=== PATIENT | female | born 2005 | race Caucasian/White ===

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

== ENCOUNTER 2024-06-07 23:58 | Inpatient (IN) | payer MEDICAID, OTHER ==
--- NOTE | 2024-06-08 01:15 | ED ---
Psych HPI - General Source: patient, RN notes reviewed Mode of arrival: EMS Limitations: no limitations - History of Present Illness MD Complaint: suicidal ideation <Veronica Salazar - Last Filed: 06/08/24 03:48> <Sandro Estes - Last Filed: 06/08/24 11:44> - General Chief Complaint: Psychiatric Symptoms Stated Complaint: Mental Health Time Seen by Provider: 06/08/24 00:08 - History of Present Illness Initial Comments: This is a 19-year-old female who presents to the emergency department for psychiatric evaluation. Patient reports dealing with suicidal ideations on and off for the last couple of years. States that over the last few days it has been much more severe. She ended up calling EMS today because she had a plan to slit her own throat. She does have a history of suicidal ideations and attempts by cutting herself. Denies any history of psychiatric hospitalizations. Not currently taking any psychiatric medications. States that she is at a point where she feels like she wants to sign herself in to the psychiatric unit to get herself care. Denies any homicidal ideations or auditory/visual hallucinations. She does report having several alcoholic beverages tonight. (Veronica Salazar) - Related Data Allergies Allergy/AdvReac Type Severity Reaction Status Date / Time honey Allergy Anaphylaxis Verified 06/08/24 10:47 Review of Systems ROS Other: All systems not noted in ROS Statement are negative. <Veronica Salazar - Last Filed: 06/08/24 03:48> ROS Other: All systems not noted in ROS Statement are negative. <Sandro Estes - Last Filed: 06/08/24 11:44> ROS Statement: Those systems with pertinent positive or pertinent negative responses have been documented in the HPI. Past Medical History Past Medical History: No Reported History History of Any Multi-Drug Resistant Organisms: None Reported Past Surgical History: No Surgical Hx Reported Smoking Status: Vaper Past Alcohol Use History: Daily Past Drug Use History: Marijuana <Veronica Salazar - Last Filed: 06/08/24 03:48> General Exam Limitations: no limitations General appearance: alert, in no apparent distress Head exam: Present: atraumatic, normocephalic, normal inspection Respiratory exam: Present: normal lung sounds bilaterally. Absent: respiratory distress, wheezes, rales, rhonchi, stridor Cardiovascular Exam: Present: regular rate, normal rhythm, normal heart sounds. Absent: systolic murmur, diastolic murmur, rubs, gallop, clicks Neurological exam: Present: alert, oriented X3, CN II-XII intact Psychiatric exam: Present: flat affect, suicidal ideation. Absent: homicidal ideation Skin exam: Present: warm, dry, intact, normal color. Absent: rash <Veronica Salazar - Last Filed: 06/08/24 03:48> Course Vital Signs 06/08/24 00:00 Temperature 98.8 F Pulse Rate 89 Respiratory 18 Rate Blood Pressure 111/76 O2 Sat by Pulse 98 Oximetry Medical Decision Making <Veronica Salazar - Last Filed: 06/08/24 03:48> <Sandro Estes - Last Filed: 06/08/24 11:44> - Medical Decision Making This is a 19-year-old female who presents to the emergency department for psychiatric evaluation. Was pt. sent in by a medical professional or institution? @ -No Did you speak to anyone other than the patient for history? @ -No Did you review nursing and triage notes? @ -Yes, and I agree, it is accurate with regards to the patient's symptoms. Were old charts reviewed? @ -No Differential Diagnosis? @ -Differential Mental Health: Depression, anxiety, bipolar, psychosis, schizophrenia, borderline personality, situational depression, adjustment disorder, behavioral disorder, brain tumor, malingering, substance abuse, encephalopathy, medication reaction, dementia, hypothyroidism, degenerative neurologic disorder, lupus.... This is not meant to be all-inclusive list EKG interpreted by me (3pts min.)? @ -Not obtained X-rays interpreted by me (1pt min.)? @ -Not obtained CT interpreted by me (1pt min.)? @ -Not obtained U/S interpreted by me (1pt. min.)? @ -Not obtained What testing was considered but not performed? (CT, X-rays, U/S, labs)? Why? @ -None What meds were considered but not given? Why? @ -None Did you discuss the management of the patient with other professionals? @ -No Did you reconcile home meds? @ -No Was smoking cessation discussed for >3mins.? @ -No Was critical care preformed (if so, how long)? @ -No Were there social determinants of health that impacted care today? How? (Homelessness, low income, unemployed, alcoholism, drug addiction, transportation, low edu. Level, literacy, decrease access to med. care, long term, rehab)? @ -No Was there de-escalation of care discussed even if they declined? (Discuss DNR or withdrawal of care, Hospice)? @ -No What co-morbidities impacted this encounter? (DM, HTN, Smoking, COPD, CAD, Cancer, CVA, Hep., AIDS, mental health diagnosis, sleep apnea, morbid obesity)? @ -Mental health diagnosis, alcohol use Was patient admitted / discharged? @ -Patient's BAT was 0.264 indicating she will be clear for EPS evaluation after 10 hours, at 10am. Case signed out to ED attending pending EPS evaluation. Undiagnosed new problem with uncertain prognosis? @ -None Drug Therapy requiring intensive monitoring for toxicity (Heparin, Nitro, Insul in, Cardizem)? @ -None (Veronica Salazar) Patient seen by mental health nurse. Case was discussed with mental health nurse with plans for admission to psychiatric floor. Diagnosis: Depression, suicidal ideation Acute, acute Threat to life (Sandro Estes) - Lab Data Lab Results 06/08/24 06/08/24 Range/Units 11:27 11:27 Urine Color Light Yellow Urine Appearance Clear (Clear) Urine pH 5.5 (5.0-8.0) Ur Specific [place] 1.020 (1.001-1.035) Urine Protein Negative (Negative) Urine Glucose (UA) Negative (Negative) Urine Ketones Negative (Negative) Urine Blood Negative (Negative) Urine Nitrite Negative (Negative) Urine Bilirubin Negative (Negative) Urine Urobilinogen <2.0 (<2.0) mg/dL Ur Leukocyte Esterase Negative (Negative) Urine HCG, Qual Not Detected (Not Detectd) Disposition <Veronica Salazar - Last Filed: 06/08/24 03:48> Is patient prescribed a controlled substance at d/c from ED?: No Time of Disposition: 11:44 <Sandro Estes - Last Filed: 06/08/24 11:44> Clinical Impression: Depression, Suicidal ideation Disposition: TRANSFER TO PSYCH HOSP/UNIT Referrals: None,Stated [Primary Care Provider] - 1-2 days
[2024-06-08] MEDS: NICOTINE 14MG/24HR PATCH TRANSDERM STA (06:07)
[2024-06-08 11:33] LABS: Appearance,Urine Clear (Clear); Bilirubin,Urine Negative (Negative); Blood,Urine Negative (Negative); Color,Urine Light Yellow; Glucose,Urine (UA) Negative (Negative); Ketones,Urine Negative (Negative); Leukocyte Esterase,Urine Negative (Negative); Nitrite,Urine Negative (Negative); PH, Urine 5.5 (5.0-8.0); Protein,Urine Negative (Negative); Urobilinogen,Urine <2.0 mg/dL (<2.0)
[2024-06-08 11:44] LABS: Amphetamine Screen,Urine Not Detected (NotDetected); Barbiturate Screen,Urine Not Detected (NotDetected); Benzodiazepines Screen,Urine Not Detected (NotDetected); Cocaine Screen,Urine Not Detected (NotDetected); Methadone Screen, Urine Not Detected (NotDetected); Opiate Screen,Urine Not Detected (NotDetected); Oxycodone Screen, Urine Not Detected (NotDetected); Phencyclidine Screen,Urine Not Detected (NotDetected); Tricyclic Antidepressant,Urine Not Detected (NotDetected); Urn Cannabinoid Scrn Detected (NotDetected)
[2024-06-08] MEDS ORDERED: MAGNESIUM HYDROXIDE 2,400 MG/30 ML CUP PO PRN (12:50)
[2024-06-08] MEDS ORDERED: ACETAMINOPHEN TAB 325 MG TAB PO PRN (12:50)
[2024-06-08] MEDS ORDERED: MAG HYDROX/AL HYDROX/SIMETH 355 ML BOTTLE PO PRN (12:50)
[2024-06-08] MEDS ORDERED: IBUPROFEN 600 MG TAB PO PRN (12:50)
[2024-06-08] MEDS ORDERED: HALOPERIDOL LACTATE 5 MG/ML 1 ML VIAL IM PRN (12:52)
[2024-06-08] MEDS ORDERED: haloperidoL 5 MG TAB PO PRN (12:52)
[2024-06-08] MEDS ORDERED: LORazepam 2 MG/ML INJ IM PRN (12:52)
[2024-06-08] MEDS ORDERED: LORazepam 1 MG TAB PO PRN (12:52)
[2024-06-08] MEDS: NICOTINE 21MG/24HR PATCH TRANSDERM SCH (13:23)
[2024-06-08] MEDS: NICOTINE GUM (POLACRILEX) 2 MG GUM BUCCAL PRN (14:02)
--- NOTE | 2024-06-08 17:45 | P.MDCNMH ---
History of Present Illness H&P Date: 06/08/24 History of Presenting Illness: Patient is a 19-year-old genetically born female that identifies as a male and goes by the name [place]. He reports a history of ADHD, depression, anxiety, and nicotine use via vaping. Patient does report alcohol use but states only drinks 1-2 beers daily. Pt is currently admitted to inpatient mental health unit secondary to reports of depression with suicidal ideations. We were consulted for medical H&P and medical management throughout hospitalization. Patient seen and fully evaluated in the mental health unit. Patient was ambulatory with a steady gait. He denies having any pain or complaints at this time. Patient reports first day of last menstrual cycle being 05/14/24 and is concerned that menstrual cycle will come during this admission and that they do not provide tampons. Pt reassured that sanitary napkins/pads will be provided and he expressed frustration regarding this, stating "I am not going to wear a diaper". Patient otherwise denies having any other complaints including headache, lightheadedness, dizziness, chest pain, palpitations, shortness of breath, or experiencing any nausea or vomiting. Review of systems: Pertinent positives and negatives as discussed in HPI, a complete review of systems was performed and all other systems are negative. Physical exam: Vital signs reviewed and stable. General: Nontoxic, no distress and appears stated age. Derm: Skin warm and dry, normal coloration for ethnicity. Head: Atraumatic, normocephalic and symmetric. Eyes: EOM's intact, no lid lag, and anicteric sclera Mouth: no lip lesions, mucus membranes moist Cardiovascular: regular rate and rhythm with normal S1S2, no murmur, positive posterior tibial pulses bilaterally, and cap refill < 2 seconds. Lungs: Respirations even, regular, and unlabored on room air. Lungs CTA bilaterally, no rhonchi, no rales, no wheezing, and no accessory muscle usage. Abdominal: soft, nontender to palpation, no guarding, no appreciable organomegaly Ext: ROM intact. No gross muscle atrophy, no edema, no contractures Neuro: Speech clear, face symmetrical and CN II-XII grossly intact with no noted focal neuro deficits Psych: Alert and oriented to person, place, time, and situation. Appropriate and pleasant affect. Assessment and Plan of Care: Daily alcohol use/abuse -Monitor CIWA scores every 4 hours x 72 hours, unlikely patient will need symptom triggered management with benzodiazepines as they report only drinking 1-2 beers daily. Nicotine dependence -Recommend smoking cessation. Continue nicotine patch 21 mg daily. ADHD -Patient reports self-medicating with caffeine, denies taking any ADHD medications. Anxiety with depression Suicidal ideations -Maintain suicide precautions.. -Treatment per primary admitting psychiatric team. Data reviewed: -Vital signs reviewed. Blood pressure 134/72, heart rate 107, respiratory rate 20, temp 98.2 F, and SpO2 of 97% on room air. -Labs reviewed. Urinalysis negative for blood or infection. Urine hCG negative for . Urine drug screen positive for marijuana. COVID PCR negative. Thank you for allowing us to participate in the care of this pleasant patient. Do not hesitate to contact us with questions. Someone can be reached from the [facility] hospitalist group all hours of the day at [phone] or via [employer]. Patient was seen independently by Nurse Practitioner. This document was prepared using [employer] dictation software. Please allow for errors in station baggage agent while rare they do occur. Xavi Cosme NP rendered care for this patient independently, reviewed the findings and plan as documented in the note above. I did not physically speak with or examine the patient on this date. . Past Medical History Past Medical History: No Reported History History of Any Multi-Drug Resistant Organisms: None Reported Past Surgical History: No Surgical Hx Reported Past Anesthesia/Blood Transfusion Reactions: No Reported Reaction Smoking Status: Vaper Medications and Allergies Home Medications Medication Instructions Recorded Confirmed Type No Known Home Medications 06/08/24 06/08/24 History Allergies Allergy/AdvReac Type Severity Reaction Status Date / Time honey Allergy Anaphylaxis Verified 06/08/24 10:47 Physical Exam Vitals: Vital Signs Temp Pulse Pulse Resp BP BP Pulse Ox 06/08/24 13:48 98.2 F 107 H 20 134/72 97 06/08/24 13:06 80 18 112/69 98 06/08/24 00:00 98.8 F 89 18 111/76 98 Intake and Output 06/08/24 06/08/24 06/08/24 06:59 14:59 22:59 Other: Weight 68.039 kg 63.6 kg Cranial Nerve Examination - Cranial Nerves Cranial Nerve II- Optic: Intact Cranial Nerve III- Oculomotor: Intact Cranial Nerve IV- Trochlear: Intact Cranial Nerve V- Trigeminal: Intact Cranial Nerve - Abducens: Intact Cranial Nerve VII- Facial: Intact Cranial Nerve VIII- Auditory: Intact Cranial Nerve IX- Glossopharyngeal: Intact Cranial Nerve X- Vagus: Intact Cranial Nerve XI- Accessory: Intact Cranial Nerve XII- Hypoglossal: Intact Results Labs: Abnormal Lab Results - Last 24 Hours (Table) 06/08/24 Range/Units 11:27 U Marijuana (THC) Screen Detected H (NotDetected)
--- NOTE | 2024-06-09 14:13 | P.HP ---
Psychiatric H&P - . H&P Date: 06/09/24 History & Physical: Allergies Allergy/AdvReac Type Severity Reaction Status Date / Time honey Allergy Anaphylaxis Verified 06/08/24 10:47 Vital Signs Temp 98.2 F 06/08/24 13:48 Pulse 72 06/09/24 06:34 Resp 20 06/08/24 13:48 BP 116/79 06/09/24 06:34 Pulse Ox 97 06/08/24 13:48 FiO2 Intake & Output 06/08/24 06/09/24 06/09/24 18:59 06:59 18:59 Weight 63.6 kg Laboratory Last Values Urine Color Light Yellow 06/08/24 11:27 Urine Appearance Clear (Clear) 06/08/24 11:27 Urine pH 5.5 (5.0-8.0) 06/08/24 11:27 Ur Specific [place] 1.020 (1.001-1.035) 06/08/24 11:27 Urine Protein Negative (Negative) 06/08/24 11:27 Urine Glucose (UA) Negative (Negative) 06/08/24 11:27 Urine Ketones Negative (Negative) 06/08/24 11:27 Urine Blood Negative (Negative) 06/08/24 11:27 Urine Nitrite Negative (Negative) 06/08/24 11:27 Urine Bilirubin Negative (Negative) 06/08/24 11:27 Urine Urobilinogen <2.0 mg/dL (<2.0) 06/08/24 11:27 Ur Leukocyte Esterase Negative (Negative) 06/08/24 11:27 Urine HCG, Qual Not Detected (Not Detectd) 06/08/24 11:27 Urine Opiates Screen Not Detected (NotDetected) 06/08/24 11:27 Ur Oxycodone Screen Not Detected (NotDetected) 06/08/24 11:27 Urine Methadone Screen Not Detected (NotDetected) 06/08/24 11:27 Ur Barbiturates Screen Not Detected (NotDetected) 06/08/24 11:27 U Tricyclic Antidepress Not Detected (NotDetected) 06/08/24 11:27 Ur Phencyclidine Scrn Not Detected (NotDetected) 06/08/24 11:27 Ur Amphetamines Screen Not Detected (NotDetected) 06/08/24 11:27 U Methamphetamines Scrn Not Detected (NotDetected) 06/08/24 11:27 U Benzodiazepines Scrn Not Detected (NotDetected) 06/08/24 11:27 Urine Cocaine Screen Not Detected (NotDetected) 06/08/24 11:27 U Marijuana (THC) Screen Detected (NotDetected) H 06/08/24 11:27 SARS-CoV-2 (PCR) Not Detected (Not Detectd) 06/08/24 11:43 06/09/24 13:53 IDENTIFYING DATA: Patient is a 19-year-old transgender male, single, employed and living at home with mother CHIEF COMPLAINT: Suicidal ideations with a plan HPI: Patient presented to the hospital on 06/08 with suicidal ideations. Per ED note, "This is a 19-year-old female who presents to the emergency department for psychiatric evaluation. Patient reports dealing with suicidal ideations on and off for the last couple of years. States that over the last few days it has been much more severe. She ended up calling EMS today because she had a plan to slit her own throat. She does have a history of suicidal ideations and attempts by cutting herself. Denies any history of psychiatric hospitalizations. Not currently taking any psychiatric medications. States that she is at a point where she feels like she wants to sign herself in to the psychiatric unit to get herself care. Denies any homicidal ideations or auditory/visual hallucinations. She does report having several alcoholic beverages tonight." EPS evaluation revealed "patient reports being at a [employer] republic[employer] last night drinking alcohol. She states that she called EMS because she was going to "abelardo" herself. She explained that she had a plan to go to [place] and cut her throat or hang herself in the barn. Patient has been struggling with SI since 10 years old, never sought mental health treatment and does not utilize supports. Patient admits to drinking alcohol daily, approximately 1-2 beers da mary." Patient seen and evaluated on the unit but was agreeable to speak to copy writer in office. Patient was fixated on being discharged back home however was agreeable to starting treatment. Patient goes by the name [place] and uses "they/them" pronouns. They report being on a [employer] republican on Sunday night and was drinking alcohol and tried shrooms for the first time. They stated that their ex fianc had called them which was a trigger as they are no longer together and that this was what prompted the suicidal thoughts. Patient states that he did not want to act on these thoughts so they themselves contacted EMS for help. Patient reports sleep difficulties for the past month, chronic poor appetite, anhedonia, concentration difficulties. Patient reports having periods of time described as high energy, irritability, decreased need for sleep that lasts for 1 week. Patient reports a history of cutting however has not self harmed since November. Patient reports restlessness and feeling on edge however states that this usually coincides with mood symptoms and denied any generalized worries or social anxiety. Patient denies any suicidal or homicidal ideations intent or plan. At this time patient denies any auditory or visual hallucinations. Patient denies any flight of ideas racing thoughts and increased in goal directed behavior. Patient admits to using cannabis daily, 2 beers per day, vape nicotine daily. PAST PSYCHIATRIC HISTORY: Patient has a history of ADHD. Patient denies being on any psychiatric medications however has tried Vyvanse and Adderall in the past. Patient denies any previous psychiatric hospitalizations. Patient denies any psychiatric outpatient follow-up. Patient reports several suicide attempts, most recent in November PMH: as per ER note ALLERGIES: as per EMR SUBSTANCE USE HISTORY: Patient reports drinking roughly 2 beers per day, vaping cannabis and using edibles daily, and vaping nicotine daily. Patient reports recently trying psilocybin at a republican FAMILY PSYCHIATRIC/SUBSTANCE USE HISTORY: Patient reports mother, father and sister are all diagnosed with bipolar disorder. She reports her sister has attempted suicide in the past SOCIAL HISTORY: Patient was born in [place] and raised in [facility] where they currently reside with their mother and younger brother. Patient completed school up to the 11th grade and is currently working at [employer]. Patient denies any legal history MENTAL STATUS EXAM: General Appearance: Patient appears to be stated age is alert, directable, and attempts to cooperate. Patient appears to have fair hygiene and grooming. Patient has blue dyed hair Behavior: Patient is seated without any agitated behavior. Speech: Patient's speech is fluent and nonpressured. Mood/Affect: Patient reports their mood is "okay", affect is congruent and reactive, bright affect Suicidality/Homicidality: Patient denies having any homicidal ideation intent or plan. Denies any suicidal ideations intent or plan Perceptions: Patient denies any visual hallucinations and denies any auditory hallucinations Though content/process: There is no evidence of any delusional thought content and thought process is linear and goal-directed. Memory and concentration: AOX3, grossly intact for the purposes of this session. Can spell "WORLD" backwards Judgment and insight: Poor STRENGTHS/WEAKNESSES: strength is that patient is resilient and seeking treatment. Weakness is that patient has poor judgment and is impulsive INTELLECT: Average IMPRESSIONS: Bipolar disorder, current episode depressed with anxious distress Alcohol use disorder, mild Cannabis use disorder Nicotine dependence PLAN: -Patient is admitted under voluntary status to MHU for stabilization of psychiatric symptoms and safety. Patient has signed adult voluntary form and medication consent and is placed in patient's chart. -Medications : Start Latuda 20 mg p.o. with dinner for bipolar depression, melatonin 10 mg at bedtime for sleep -Ativan and Haldol PRN for agitation/aggression -Patient was counselled on substance abuse and desired to cut back on use-Will offer patient subtance use rehab -Patient was informed of the risks, benefits and side effects of the medication and patient verbally consented to taking the medications. Patient signed med consent form and was placed in chart. -Internal Medicine consult to perform medical evaluation and physical. -NRT -nicotine patch and as needed gum -SW on board for discharge planning. Encourage patient to participate in groups to work on coping skills. Anticipate discharge home with mom on Sunday pending stabilization of symptoms
[2024-06-09 16:23] VITALS: BMI 21.3
[2024-06-09] MEDS: LURASIDONE 20 MG TAB PO SCH (17:13)
[2024-06-09] MEDS: MELATONIN 5 MG TABLET PO SCH (21:00)
[2024-06-09] MEDS ORDERED: MELATONIN 5 MG TABLET PO SCH (21:00)
--- NOTE | 2024-06-10 13:07 | P.PN ---
Progress Note - Text Progress Note Date: 06/10/24 Interval History: Patient was seen in group and was directable and agreeable to speak with feature writer in the office. They state feeling well today however expressed a strong desire to go home. They report fair sleep and appetite today. They report sweaty palms which they feel like is due to the medication however they were in agreement with increasing this medication today to a more therapeutic dose. Patient reports irritability yesterday and mood swings. Patient states speaking to their mother yesterday and their younger brother which made them feel sad as they are close to their brother. Patient's substance use was discussed and they report no longer wish to drink or use other substances upon discharge. Patient expressed a desire to follow up with the PCP upon discharge as they have not seen one in 2 years. At this time patient denies any suicidal or homicidal ideations, intent or plan. Patient denies any auditory, visual hallucinations and denies any paranoia or delusions. Patient has been compliant with meds. Mental Status Exam: General Appearance: Patient appears to be stated age is alert, directable, and cooperative. Patient has short blue dyed hair Behavior: Patient is calmly seated without any agitated behavior. Speech: Patient's speech is fluent and talkative Mood/Affect: Mood is improving mildly, affect is congruent and bright affect, full range. Suicidality/Homicidality: Patient denies having any suicidal or homicidal ideation intent or plan. Perceptions: Patient denies any visual hallucinations and denies any auditory hallucinations Though content/process: There is no evidence of any delusional thought content and thought process is linear and goal-directed. Memory and concentration: AOX3, grossly intact for the purposes of this session Judgment and insight: Improving mildly Assessment Bipolar disorder, current episode depressed with anxious distress Alcohol use disorder, mild Cannabis use disorder Nicotine dependence Plan: -Patient continues to meet criteria for inpatient psychiatric admission for symptom stabilization and safety. Patient has signed adult voluntary form and medication consent and was placed in patient's chart. -Medications: Increase Latuda to 40 mg p.o. with dinner for bipolar depression, melatonin 10 mg at bedtime for sleep -When necessary Ativan and Haldol for agitation/aggression. -Labs: Reviewed -NRT -nicotine patch -Patient was counseled today on their substance use was encouraged to refrain from using. Patient declined rehab at this time -SW on board for discharge planning. Encouraged the patient to participate in milieu. Anticipate discharge home with mom tomorrow
[2024-06-10] MEDS: LURASIDONE 40 MG TAB PO SCH (16:54)
[2024-06-11 07:04] VITALS: BP 114/72; PULSE 81; RESP 16; TEMP 97.5
--- NOTE | 2024-06-11 13:21 | P.DS ---
Providers Date of admission: 06/08/24 12:49 Expected date of discharge: 06/11/24 Attending physician: Nohemy Estes MD Consults: 06/08/24 12:50 Consult Physician Routine Consulting Provider: Yomi Galaviz Consult Reason/Comments: H&P Do you want consulting provider notified?: Yes Primary care physician: Stated None - Discharge Diagnosis(es) (1) Bipolar disorder, most recent episode depressed Status: Acute Priority: High (2) Alcohol use disorder, mild, abuse Status: Acute Priority: Low (3) Cannabis use disorder Status: Acute Priority: Low (4) Nicotine dependence Status: Chronic Priority: Low Hospital Course: Admission HPI: Admission note was completed by residential mortgage underwriter "Patient presented to the hospital on 06/08 with suicidal ideations. Per ED note, "This is a 19-year-old female who presents to the emergency department for psychiatric evaluation. Patient reports dealing with suicidal ideations on and off for the last couple of years. States that over the last few days it has been much more severe. She ended up calling EMS today because she had a plan to slit her own throat. She does have a history of suicidal ideations and attempts by cutting herself. Denies any history of psychiatric hospitalizations. Not currently taking any psychiatric medications. States that she is at a point where she feels like she wants to sign herself in to the psychiatric unit to get herself care. Denies any homicidal ideations or auditory/visual hallucinations. She does report having several alcoholic beverages tonight." EPS evaluation revealed "patient reports being at a Halloween alliance party last night drinking alcohol. She states that she called EMS because she was going to "abelardo" herself. She explained that she had a plan to go to [place] and cut her throat or hang herself in the barn. Patient has been struggling with SI since 10 years old, never sought mental health treatment and does not utilize supports. Patient admits to drinking alcohol daily, approximately 1-2 beers daily." Patient seen and evaluated on the unit but was agreeable to speak to residential mortgage underwriter in office. Patient was fixated on being discharged back home however was agreeable to starting treatment. Patient goes by the name River and uses "they/them" pronouns. They report being on a Halloween alliance party on Sunday night and was drinking alcohol and tried shrooms for the first time. They stated that their ex fianc had called them which was a trigger as they are no longer together and that this was what prompted the suicidal thoughts. Patient states that he did not want to act on these thoughts so they themselves contacted EMS for help. Patient reports sleep difficulties for the past month, chronic poor appetite, anhedonia, concentration difficulties. Patient reports having periods of time described as high energy, irritability, decreased need for sleep that lasts for 1 week. Patient reports a history of cutting however has not self harmed since November. Patient reports restlessness and feeling on edge however states that this usually coincides with mood symptoms and denied any generalized worries or social anxiety. Patient denies any suicidal or homicidal ideations intent or plan. At this time patient denies any auditory or visual hallucinations. Patient denies any flight of ideas racing thoughts and increased in goal directed behavior. Patient admits to using cannabis daily, 2 beers per day, vape nicotine daily." Hospital course: Upon admission to the unit patient was directable and agreeable to commence treatment and signed adult voluntary form.. Patient got along well with other patients on the unit and followed unit protocol. Patient was compliant with the medications and denied any side effects throughout hospital course. Patient was started on Latuda this was increased to 40 mg with dinner, melatonin increased to 10 mg at bedtime. Patient spoke of their stressors and engaged in therapy both group and individual. Patient was also seen by medical team for history and physical exam. Throughout the course of the hospitalization patient gradually improved with regards to mood, anxiety, sleep and returned back to their baseline level of functioning. On the day of discharge patient denied any suicidal or homicidal ideations intent or plan denied any auditory or visual hallucinations. The patient denied any access to guns or weapons. Patient denied any paranoia and did not endorse any delusions. Patient does have a significant history of substance abuse and was counseled on abstaining from all substances including alcohol and marijuana. Patient was adamant that he will refrain from all substances given their contribution to their current clinical presentation. Patient was also counseled on the medications and need for regular compliance and was encouraged to follow-up with their outpatient appointment for mental health and also for primary care. Prior to discharge a family meeting will be arranged by mental health social worker to answer any questions and ensure safety upon discharge incuding making sure that guns/weapons are either removed from the home or locked away. Patient to be discharged back home with mother today. Mental status exam: General Appearance: Patient appears to be stated age is alert, pleasant, and cooperative. Patient is in no acute distress and has fair hygiene and grooming. Patient notably has dyed blue hair Behavior: Patient is calmly seated without any agitated behavior. Speech: Patient's speech is fluent and talkative Mood/Affect: Patient reports their mood is "better", affect is congruent and euthymic. Suicidality/Homicidality: Patient denies having any suicidal or homicidal ideation intent or plan. Perceptions: Patient denies any auditory or visual hallucinations. Though content/process: There is no evidence of any delusional thought content and thought process is linear and goal-directed. More future oriented Memory and concentration: AOX3, grossly intact for the purposes of this session. Can spell "WORLD" backwards correctly. Judgment and insight: Fair Impression: Bipolar disorder, most recent episode depressed with anxious distress Alcohol use disorder, mild Cannabis use disorder Nicotine dependence Plan: -Continue with discharge today as patient has improved and stabilized psychiatrically and is not currently an imminent threat to themself and/or others. -Continue medications: Latuda 40 mg p.o. with dinner for bipolar depression, melatonin 10 mg at bedtime for sleep -Patient was counseled on the need for medication compliance and appropriate follow-up at mental health and also primary care for medical issues. Patient verbalized understanding and agreed. -Social work to help coordinate patients discharge today arrange for and conduct family meeting to ensure safety upon discharge and answer any questions/concerns. also to ensure safe home environment that guns/weapons are either removed from the home or locked away. Social work also to arrange for patients follow up appointments with [facility] for psychiatric care along with follow up with primary care provider. -Patient counseled on abstaining from recreational drugs and marijuana and alcohol. Was informed/educated on the adverse effects on their physical and mental health. Patient verbally agreed and understood. -Patient was instructed to return to the hospital or seek immediate medical care if their psychiatric or medical symptoms do worsen or reoccur. Allergies Allergy/AdvReac Type Severity Reaction Status Date / Time blueberry Allergy Rash/Hives Verified 06/10/24 12:17 honey Allergy Anaphylaxis Verified 06/08/24 10:47 Abnormal Labs 06/08/24 11:27 U Marijuana (THC) Screen Detected H Vital Signs Temp 97.5 F L 06/11/24 06:23 Pulse 81 06/11/24 06:23 Resp 16 06/11/24 06:23 BP 114/72 06/11/24 06:23 Pulse Ox 100 06/11/24 06:23 FiO2 Patient Condition at Discharge: Stable Plan - Discharge Summary Discharge Rx Participant: No New Discharge Prescriptions: New Lurasidone [Latuda] 40 mg PO 1800 30 Days #30 tab Melatonin 10 mg PO HS tab Nicotine 21Mg/24Hr Patch [Habitrol] 1 patch TRANSDERM DAILY 30 Days #30 patch Nicotine Gum (Polacrilex) [Nicorette] 2 mg BUCCAL Q4HR PRN 30 Days #90 pieceofgum PRN Reason: Nicotine Cravings Discharge Medication List Lurasidone [Latuda] 40 mg PO 1800 30 Days #30 tab 06/11/24 [Rx] Melatonin 10 mg PO HS tab 06/11/24 [Rx] Nicotine 21Mg/24Hr Patch [Habitrol] 1 patch TRANSDERM DAILY 30 Days #30 patch 06/11/24 [Rx] Nicotine Gum (Polacrilex) [Nicorette] 2 mg BUCCAL Q4HR PRN 30 Days #90 pieceofgum 06/11/24 [Rx] Follow up Appointment(s)/Referral(s): [facility] Kristin [Outside] - 06/17/24 9:30 am (José Manuel) [facility] [NON-STAFF] - 1 Week Patient Instructions/Handouts: How to Stop Smoking (DC), Bipolar Disorder (DC), Abuse of Alcohol (DC), Cannabis Abuse (DC) Activity/Diet/Wound Care/Special Instructions: [facility] Discharge Info Avoid the use of street drugs and alcohol. Take all medications as prescribed. When you are in need of refills on your medications, please contact your outpatient medical provider and/or outpatient psychiatrist. Please go to your scheduled outpatient appointments for aftercare treatment. If symptoms return or become worse, call the crisis line at or and/or visit the nearest emergency room for assistance. National Suicide and Crisis Lifeline - call or text 988. Discharge Disposition: HOME SELF-CARE
== END 2024-06-11 12:04 | disposition home or self-care (01) | DRG 753 ==
LOC: EC 23:58 → 3MHU 06-08 12:49
PROVIDERS: ADMIT Psychiatry & Neurology Psychiatry; ATTEND Psychiatry & Neurology Psychiatry
DX: F31.30 Bipolar disorder, current episode depressed, mild or moderate severity, unspecified (principal); F10.10 Alcohol abuse, uncomplicated; F12.90 Cannabis use, unspecified, uncomplicated; F17.200 Nicotine dependence, unspecified, uncomplicated; F41.9 Anxiety disorder, unspecified; R45.851 Suicidal ideations; Z91.52 Personal history of nonsuicidal self-harm; Z11.52 Encounter for screening for COVID-19
CPT/HCPCS: 80306; 81003; 81025; 82075; 87635; 99285

== ENCOUNTER 2024-11-29 04:17 | Observation (INO) | payer OTHER ==
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
[2024-11-29] MEDS ORDERED: ALPRAZolam 0.25 MG TAB PO PRN (08:01)
[2024-11-29] MEDS ORDERED: IBUPROFEN 400 MG TAB PO PRN (08:01)
[2024-11-29] MEDS ORDERED: NALOXONE 0.4 MG/ML 1 ML VIAL IV PRN (08:01)
[2024-11-29] MEDS ORDERED: PROCHLORPERAZINE 5 MG TAB PO PRN (08:01)
[2024-11-29] MEDS ORDERED: LORazepam 2 MG/ML INJ IV PRN (08:12)
[2024-11-29] MEDS ORDERED: chlordiazePOXIDE 25 MG CAP PO PRN ×4 (08:12)
[2024-11-29] MEDS ORDERED: LORazepam 1 MG TAB PO PRN (08:12)
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
[2024-11-29] MEDS: FAMOTIDINE 20 MG TAB PO SCH (08:25)
[2024-11-29] MEDS: FOLIC ACID 1 MG TAB PO SCH (08:25)
[2024-11-29] MEDS: MULTIVITAMINS, THERA 1 EACH TAB PO SCH (08:26)
[2024-11-29] MEDS: ACETAMINOPHEN TAB 325 MG TAB PO PRN (08:27)
[2024-11-29] MEDS ORDERED: LORazepam 1 MG/0.5 ML VIAL IV PRN (15:00)
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
[2024-11-29] MEDS: NICOTINE 21MG/24HR PATCH TRANSDERM SCH (17:22)
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
[2024-11-30 07:36] VITALS: BP 150/92; PULSE 100; RESP 16; TEMP 98.4
[2024-11-30] MEDS: THIAMINE 100 MG TAB PO SCH (08:55)
[2024-11-30 09:42] LABS: Basophils # (A) 0.05 X 10*3/uL (0.00-0.10); Basophils % (A) 0.6 %; Eosinophils # (A) 0.06 X 10*3/uL (0.04-0.35); Eosinophils % (A) 0.7 %; HCT 40.2 % (37.2-46.3); HGB 13.5 g/dL (12.0-15.0); Lymphocytes # (A) 3.71 X 10*3/uL (0.90-5.00); Lymphocytes % (A) 44.9 %; MCH 31.5 pg (27.0-32.0); MCHC 33.6 g/dL (32.0-37.0); MCV 93.7 FL (80.0-97.0); Mean Platelet Volume 8.9 FL (9.5-12.2); Monocytes # (A) 1.25 X 10*3/uL (0.20-1.00); Monocytes % (A) 15.1 %; NRBC Per 100 WBC 0 X 10*3/uL (0.00-0.01); Neutrophils # (A) 3.17 X 10*3/uL (1.80-7.70); Neutrophils % (A) 38.5 %; Platelet Count 347 X 10*3/uL (140-440); RBC 4.29 X 10*6/uL (4.10-5.20); RDW 12.7 % (11.5-14.5); WBC 8.26 X 10*3/uL (4.50-10.00)
[2024-11-30 10:29] LABS: ALT 823 U/L (8-44); AST 341 U/L (13-35); Albumin 4.9 g/dL (3.8-4.9); Albumin/Globulin Ratio 2.13 Ratio (1.60-3.17); Alkaline Phosphatase 98 U/L (41-126); BUN/Creat Ratio 11.43 Ratio (12.00-20.00); Carbon Dioxide 22.3 mmol/L (21.6-31.8); Chloride 96 mmol/L (96-109); Globulin 2.3 g/dL (1.6-3.3); Glucose 80 mg/dL (70-110); Potassium 3.9 mmol/L (3.5-5.5); Sodium 137 mmol/L (135-145); Total Protein 7.2 g/dL (6.2-8.2)
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
== END 2024-11-30 11:02 | disposition home or self-care (01) ==
LOC: EC 04:17 → 4SSUR 08:01 → 5NMEDONC 08:56
PROVIDERS: ADMIT Hospitalist; ATTEND Hospitalist
DX: F10.129 Alcohol abuse with intoxication, unspecified (principal); S00.93XA Contusion of unspecified part of head, initial encounter; Y04.2XXA Assault by strike against or bumped into by another person, initial encounter; F43.20 Adjustment disorder, unspecified; F31.9 Bipolar disorder, unspecified; F39 Unspecified mood [affective] disorder; F90.9 Attention-deficit hyperactivity disorder, unspecified type; F17.290 Nicotine dependence, other tobacco product, uncomplicated; Y90.8 Blood alcohol level of 240 mg/100 ml or more; Z74.3 Need for continuous supervision; Z91.018 Allergy to other foods; Z91.51 Personal history of suicidal behavior
CPT/HCPCS: 82075; 99285; 80053; 83735; 85025; 70450; G0378 ×3; S4990 ×2